=== PATIENT | male | born 1950 | race Caucasian/White ===

== ENCOUNTER 2021-02-21 09:07 | Day surgery (SDC) | payer MEDICARE, SELFPAY ==
[2021-02-21] MEDS: PROPARACAINE 0.5% OPHTH SOL 2 DROPS EYE-OP (09:54)
[2021-02-21] MEDS: CATARACT EYE COMPOUND (10 DROPS/SYRINGE) 3 DROPS EYE-OP (09:57)
[2021-02-21 10:06] VITALS: BP 143/79; PULSE 72; RESP 16; TEMP 37; O2SAT 96; BMI 25.1
--- NOTE | 2021-02-21 10:40 | PM.PREOP ---
Pre-operative Note Interval Note History & Physical reviewed/Exam performed by Physician: Yes Changes to H&P: No
--- NOTE | 2021-02-21 10:40 | PM.OP.1 ---
Operative Date/Time/Diagnoses Pre-op diagnosis: Nuclear cataract right eye Procedure & Clinicians Procedure: Cataract Surgery Same procedure as scheduled: Yes Surgeon: Rohit Lopez Anesthesia Type: MAC +/- and Sedation Operative Notes Procedure in detail: Patient brought to the operating suite. Tetracaine drops placed in the right eye. Patient was prepped and draped in sterile manner. Wire lid speculum was placed in the eye. Betadine drops were placed on the eye. This was irrigated. Lidocaine jelly was placed on the eye. A paracentesis port was created with a side-port blade. 0.1 mL 1% preservative free lidocaine was injected into the anterior chamber. The anterior chamber was deepened with viscoelastic. 2.6 mm keratome was used to create a temporal clear corneal incision. Cystotome and Utrata forceps were used to create continuous tear capsulorrhexis. Balanced salt solution was used to hydro dissect the nucleus. The phacoemulsification handpiece was inserted and the nucleus was removed using the stop and chop technique. The irrigation aspiration handpiece was inserted and the remaining cortex was removed. Anterior chamber was deepened with viscoelastic. An Jones DIB00 intraocular lens with a power of 15.0 was injected into the capsular bag. Irrigation aspiration handpiece was inserted and the remaining viscoelastic was removed. Incision was hydrated with balanced salt solution and found to be leak free with pressure with Weck-Amber sponges. 0.1 mL Vigamox injected anterior chamber. 0.3 mL Kenalog 10 mg was injected subconjunctivally. Lid speculum was removed. The patient left the operating room in excellent condition. Complications: none Post-operative Condition: stable Disposition: same day surgery
[2021-02-21] MEDS: PHENYLEPHRINE/LIDOCAINE VIAL (OR) 0.2 ML EYE-OP (11:09)
[2021-02-21] MEDS: LIDOCAINE 2% (GLYDO) 6 ML GEL TOP (11:10)
[2021-02-21] MEDS: BALANCED SALT IRRIG SOLN NO.2 500 ML, EPINEPHrine 1 MG IRR (11:10)
[2021-02-21] MEDS: TETRACAINE 0.5% OPHTH DROPS 4 ML 2 DROPS EYE-OP (11:10)
[2021-02-21] MEDS: MOXIFLOXACIN INJ 4 MG/0.8 ML VIAL 0.5 MG EYE-OP (11:10)
[2021-02-21] MEDS: TRIAMCINOLONE 50 MG/5 ML VIAL INJ (11:10)
[2021-02-21 11:28] VITALS: BP 152/87; PULSE 61; RESP 18; TEMP 36.6; O2SAT 97
--- NOTE | 2021-02-21 11:36 | SUR.PHASEII ---
Pt ready to go, ride called, left in stable condition.
== END 2021-02-21 11:38 | disposition home or self-care (01) ==
PROVIDERS: PCP Family Medicine; Referring Provider Ophthalmology; Visit Provider Ophthalmology
PROC: (CPT 66984; principal; 2021-02-21 10:45)
DX: H25.11 Age-related nuclear cataract, right eye (principal); E78.00 Pure hypercholesterolemia, unspecified; I10 Essential (primary) hypertension
CPT/HCPCS: 66984; J0171; J2250; J3301

== ENCOUNTER 2021-03-07 10:52 | Day surgery (SDC) | payer MEDICARE, SELFPAY ==
[2021-03-07] MEDS: PROPARACAINE 0.5% OPHTH SOL 2 DROPS EYE-OP (11:13)
[2021-03-07] MEDS: CATARACT EYE COMPOUND (10 DROPS/SYRINGE) 3 DROPS EYE-OP (11:18)
[2021-03-07 11:26] VITALS: BP 171/86; PULSE 66; RESP 16; TEMP 36.8; O2SAT 97; BMI 25.1
--- NOTE | 2021-03-07 11:54 | P.OP_ITS ---
Operative Date/Time/Diagnoses Pre-op diagnosis: Nuclear Cataract Left eye Post-op diagnosis: same Procedure & Clinicians Same procedure as scheduled: Yes Surgeon: Rohit Lopez Anesthesia Type: MAC +/- and Sedation Operative Notes Procedure in detail: Patient brought to the operating suite. Tetracaine drops placed in the left eye. Patient was prepped and draped in sterile manner. Wire lid speculum was placed in the eye. Betadine drops were placed on the eye. This was irrigated. Lidocaine jelly was placed on the eye. A paracentesis port was created with a side-port blade. 0.1 mL 1% preservative free lidocaine was injected into the anterior chamber. The anterior chamber was deepened with viscoelastic. 2.6 mm keratome was used to create a temporal clear corneal incision. Cystotome and Utrata forceps were used to create continuous tear capsulorrhexis. Balanced salt solution was used to hydro dissect the nucleus. The phacoemulsification handpiece was inserted and the nucleus was removed using the stop and chop technique. The irrigation aspiration handpiece was inserted and the remaining cortex was removed. Anterior chamber was deepened with viscoe lastic. An Jones DIB00 intraocular lens with a power of 15.5 was injected into the capsular bag. Irrigation aspiration handpiece was inserted and the remaining viscoelastic was removed. Incision was hydrated with balanced salt solution and found to be leak free with pressure with Weck-Amber sponges. 0.1 mL Vigamox injected anterior chamber. 0.3 mL Kenalog 10 mg was injected subconjunctivally. Lid speculum was removed. The patient left the operating room in excellent condition. Complications: none Post-operative Condition: stable Disposition: same day surgery
--- NOTE | 2021-03-07 11:54 | PM.PREOP ---
Pre-operative Note Interval Note History & Physical reviewed/Exam performed by Physician: Yes Changes to H&P: No
[2021-03-07] MEDS: LIDOCAINE 2% (GLYDO) 6 ML GEL TOP (12:12)
[2021-03-07] MEDS: BALANCED SALT IRRIG SOLN NO.2 500 ML, EPINEPHrine 1 MG IRR (12:12)
[2021-03-07] MEDS: MOXIFLOXACIN INJ 4 MG/0.8 ML VIAL 0.5 MG EYE-OP (12:13)
[2021-03-07] MEDS: TRIAMCINOLONE 50 MG/5 ML VIAL INJ (12:13)
[2021-03-07] MEDS: PHENYLEPHRINE/LIDOCAINE VIAL (OR) 0.2 ML EYE-OP (12:13)
[2021-03-07] MEDS: CHONDROIDTIN/SOD HYALURONATE 1.05 ML SYRINGE INTRAOCULA (12:13)
[2021-03-07] MEDS: TETRACAINE 0.5% OPHTH DROPS 4 ML 2 DROPS EYE-OP (12:14)
--- NOTE | 2021-03-07 12:36 | SUR.PHASEII ---
Pt ready to go, left when ride arrived, left in stable condition.
== END 2021-03-07 12:37 | disposition home or self-care (01) ==
PROVIDERS: PCP Family Medicine; Referring Provider Family Medicine; Visit Provider Ophthalmology
PROC: (CPT 66984; principal; 2021-03-07 12:45)
DX: H25.12 Age-related nuclear cataract, left eye (principal); E78.00 Pure hypercholesterolemia, unspecified; I10 Essential (primary) hypertension
CPT/HCPCS: 66984; J0171; J2250; J3301

== ENCOUNTER → 2022-11-23 09:54 | Outpatient (CLI) | payer MEDICARE, SELFPAY ==
[2022-11-23 10:31] LABS: COVID19 -Nasal RAPID Negative (Negative)
== END ==
PROVIDERS: PCP Family Medicine; Referring Provider Internal Medicine Cardiovascular Disease; Visit Provider Internal Medicine
DX: Z20.822 Contact with and (suspected) exposure to COVID-19 (principal)
CPT/HCPCS: 87635; C9803

== ENCOUNTER → 2022-11-23 09:55 | Outpatient (CLI) | payer MEDICARE, SELFPAY ==
--- NOTE | 2022-11-27 11:22 | P.PFT.S_ITS ---
Pulmonary Function Test Referral & Results Date Patient Seen: 11/23/22 Requesting provider: Jude Kuo Results: The spirometry demonstrates an FVC of 3.25 L which is 77% of predicted. The FEV1 was measured at 1.55 L which is 50% of predicted. The FEV1/FVC ratio was 48 which is 65% of predicted. Following the administration of bronchodilator there was a 20% improvement in FEV1 and a 60% improvement in FEF 25-75%. Lung volumes show an SVC of 3.55 L which is 80% of predicted. The diffusing capacity was measured at 17.82 which is 57% of predicted. No hemoglobin value was provided, so no correction for potential anemia could be made, if appropriate. The maximum voluntary ventilation was reduced Interpretation: This study demonstrates moderately severe obstructive lung disease based on reduction FEV1 and FEV1/FVC ratio. There is evidence of significant benefit following bronchodilator as above There is a mild reduction in lung volumes suggesting the presence of mild restri ctive lung disease as well There is a moderate reduction diffusing capacity suggesting disease at the capillary alveolar level Clinical correlation suggested but this is consistent with a diagnosis of COPD
== END ==
PROVIDERS: PCP Family Medicine; Referring Provider Nurse Practitioner Family; Visit Provider Nurse Practitioner Family
DX: R06.02 Shortness of breath (principal); Z87.891 Personal history of nicotine dependence; Z20.822 Contact with and (suspected) exposure to COVID-19; J98.8 Other specified respiratory disorders
CPT/HCPCS: 87635; 94060; 94726; 94729; C9803

== ENCOUNTER → 2022-12-24 10:04 | Outpatient (CLI) | payer MEDICARE, SELFPAY ==
--- NOTE | 2022-12-24 | DI.US.S_ITS ---
PROCEDURE: US ABD AORTA ANEURYSM SCREEN INDICATIONS: screening for AAA TECHNIQUE: Real time scanning was performed of the aorta and iliac arteries, with image documentation. COMPARISON: None. FINDINGS: Aorta: Proximal aortic diameter measures 1.2 cm. Mid-aorta measures 0.9 cm. Distal aortic diameter is 0.8 cm. Iliac arteries: Right common iliac artery measures 0.5 cm. Left common iliac artery measures 0.5 cm. IMPRESSION: No ectasia or aneurysmal dilatation of the aorta or iliac arteries. Dictated by: Johanny Pang M.D. on 12/24/2022 at 13:30 Approved by: Johanny Pang M.D. on 12/24/2022 at 13:31
--- NOTE | 2022-12-24 | DI.ECHO.S_ITS ---
[facility] +---------+ : : [address] : [address] : : : : [id number] : : : : Phone: [phone] Echocardiogram Report + + :Name: JULIO CÉSAR CASANOVA III Study Date: 12/24/2022 Height: 69 in : :[facility] ReadingLocation: Weight: 174 lb : : Gender: Male BSA: 1.9 m2 : :: 1950 Age: 72 yrs BP: 142/89 mmHg: :Reason For Study: HYPERTENSION : :Ordering Physician: ELYSE, : :RON Performed By: Laney Recio : :Referring: RON PAPPAS : + + Interpretation Summary The left ventricle is normal in size. The left ventricle is hyperdynamic. The ejection fraction is estimated to be 70-75%. With Valsalva there appears to be moderate dynamic LV outflow tract obstruction with peak velocity up to 3.51 m/s. Before Valsalva velocity about 1.6 m/s. The right ventricle is mildly dilated. The right ventricular systolic function is normal. There is mild tricuspid regurgitation. The right ventricular systolic pressure is estimated to be at least 42 mmHg based on an estimated right atrial pressure of 3 mm Hg. Procedure: A two-dimensional transthoracic echocardiogram with color flow and Doppler was performed. The study quality was technically adequate. There is no prior echocardiogram noted for this patient. The patient was in sinus rhythm with heart rates between 65-79 bpm during the exam. Left Ventricle: The left ventricle is normal in size. Proximal septal thickening is noted. The echo findings are consistent with moderate dynamic left ventricular outflow tract obstruction. There is no thrombus. The ejection fraction is estimated to be 70-75%. The left ventricle is hyperdynamic. There are no focal wall motion abnormalities. Diastolic parameters suggest a relaxation abnormality of the left ventricle, consistent with probable normal filling pressures. Right Ventricle: The right ventricle is mildly dilated. The right ventricular systolic function is normal. Atria: The left atrial size is normal. Right atrial size is normal. There is no Doppler evidence for an interatrial shunt. Mitral Valve: The mitral valve is normal in structure and function. There is systolic anterior motion of the chordal apparatus. Redundant elongated chordae are noted. There is trace mitral regurgitation. Aortic Valve: The aortic valve is trileaflet. The aortic valve is slightly calcified. There is no aortic valve stenosis. No aortic regurgitation is present. Tricuspid Valve: The tricuspid valve is normal. There is mild tricuspid regurgitation. The right ventricular systolic pressure is estimated to be at least 42 mmHg based on an estimated right atrial pressure of 3 mm Hg. Pulmonic Valve: The pulmonic valve is not well visualized. There is no pulmonic valvular regurgitation. Great Vessels: The aortic root is normal size. The dimensions of the ascending aorta are normal. The IVC is of normal diameter and collapses greater than 50% with a sniff. This suggests a low right atrial pressure of 3 mm Hg. Pericardium/ Pleura There is no pericardial effusion. There is no pleural effusion. MMode/2D Measurements & Calculations LVIDd: 4.5 cm LVOT diam: 2.3 cm LVIDs: 3.3 cm Ao root diam: 3.7 cm FS: 27.6 % asc Aorta Diam: 3.7 cm IVSd: 0.97 cm Ao Arch Diam (Prox Trans): 3.4 cm LVPWd: 0.88 cm LV galarza. diameter/BSA (cm/m^2): 2.3 LV sys. diameter/BSA (cm/m^2): 1.7 LA A2 area: 18.4 cm2 RA long axis: 5.2 cm LA A4 area: 18.2 cm2 RA area: 15.5 cm2 LA length (vol): 5.2 cm RA vol: 39.1 ml LA vol: 54.7 ml RA : 20.1 ml/m2 LA vol index: 28.1 ml/m2 IVC diam: 1.4 cm RVD1 (basal): 4.3 cm RVD2 (mid): 3.1 cm TAPSE: 2.0 cm Doppler Measurements & Calculations Ao V2 max: 151.1 cm/sec LVOT Max Lon: 140.9 cm/sec Ao V2 mean: 109.8 cm/sec LV V1 max P.9 mmHg Ao max P.1 mmHg LV V1 VTI: 27.6 cm Ao mean P.3 mmHg BJORN(I,D): 3.8 cm2 Ao V2 VTI: 30.5 cm BJORN(V,D): 4.0 cm2 sev ratio: 0.90 BJORN indexed to BSA (cm^2/m^2): 2.0 MV E max lon: 74.4 cm/sec TR max lon: 310.7 cm/sec MV A max lon: 111.7 cm/sec TR max P.6 mmHg MV E/A: 0.67 PA V2 max: 121.7 cm/sec Med Peak E' Lon: 7.7 cm/sec PA V2 mean: 78.7 cm/sec E/E' med: 9.7 PA mean P.8 mmHg Lat Peak E' Lon: 9.4 cm/sec PA pr(Accel): 51.6 mmHg E/E' lat: 7.9 E/e' average: 8.8 MV dec time: 0.24 sec SV(LVOT): 116.8 ml Reading Physician:01:56 PM
--- NOTE | 2022-12-24 | DI.NM.S_ITS ---
PROCEDURE: NM JAYCE PERF SPECT REST & STR Rest and exercise myocardial perfusion SPECT with gated imaging and ejection fraction RADIOPHARMACEUTICAL: 11.6 mCi Tc-99m sestamibi IV at rest and 26.5 mCi Tc-99m sestamibi IV at peak exercise. A [id number] was performed. INDICATIONS: Hypertension TECHNIQUE: Radiopharmaceutical was injected at peak stress test, and also at rest. SPECT images were obtained. SPECT myocardial perfusion images were displayed in short axis, horizontal long axis, and vertical long axis views. Gated images were reviewed using Couchsurfing software. COMPARISON: None. CARDIAC STRESS: A standard [place] treadmill exercise tolerance test was performed by the patient under the supervision of an attending staff. The patient exercised for 4 minutes and 0 seconds; 4.6 METS; functional aerobic impairment (CHUY) is +47%. Hemodynamic data: There is normal heart rate response to exercise stress. Hypertensive blood pressure response to exercise up to 248 systolic. Patient achieved 107% of maximum predicted heart rate at peak exercise. Symptoms: Patient denied chest pain during exercise. The patient did experience claudication with exertion. EKG: No ST segment changes. Frequent PVCs and brief episodes of NSVT up to 6 beats with exercise and in recovery. FINDINGS: Raw data: There is good myocardial labeling by radiotracer. No significant motion artifacts. Gflc-sc-qrtkw ratio is 0.38 (normal is less than 0.38 for sestamibi tracer, and less than 0.50 for thallium tracer). Left ventricle function: Gated images demonstrate normal left ventricle wall thickening. No segmental wall motion abnormality. No transient ischemic dilation; TID is 0.85 (normal less than 1.3). The left ventricle resting end-diastolic volume is 94 mL. Left ventricle stress ejection fraction is >75%; normal values are above 45%. Myocardial perfusion: There is normal distribution of activity in the left and right ventricular myocardium. No fixed or reversible perfusion defects. IMPRESSION: Intermediate risk study. No evidence of exercise induced ischemia or scar on SPECT imaging. While there were no ST segment changes on exercise ECG, there is note of frequent PVCs and NSVT. Hypertensive response to exercise. The patient complained of claudication-like symptoms. Dictated by: Stephany Giang D.O. on 12/24/2022 at 16:37 Approved by: Stephany Giang D.O. on 12/24/2022 at 16:49
== END ==
PROVIDERS: PCP Family Medicine; Referring Provider Nurse Practitioner Family; Visit Provider Nurse Practitioner Family
DX: I07.1 Rheumatic tricuspid insufficiency (principal); Z13.6 Encounter for screening for cardiovascular disorders; I73.9 Peripheral vascular disease, unspecified; I10 Essential (primary) hypertension; I70.90 Unspecified atherosclerosis; R06.02 Shortness of breath; Z87.891 Personal history of nicotine dependence
CPT/HCPCS: 76706; 78452; 93017; 93306; A9502

== ENCOUNTER → 2023-11-27 10:14 | Outpatient (CLI) | payer MEDICARE, SELFPAY ==
--- NOTE | 2023-11-27 10:15 | DI.CT.S_ITS ---
PROCEDURE: CT LUNG LOW DOSE SCREENING INDICATIONS: FORMER SMOKER TECHNIQUE: Noncontrast 2.0-2.5 mm thick sections acquired from the pulmonary apices to the posterior costophrenic angles. 7 mm thick axial MIP, and 5 mm coronal and sagittal reformats were then acquired. For radiation dose reduction, the following was used: automated exposure control, adjustment of mA and/or kV according to patient size. COMPARISON: [facility], CT, CT LOW DOSE LUNG CA SCREENING, 09/27/2021, 10:34. FINDINGS: Image quality: Breathing motion artifact limits evaluation of the bilateral lung bases. Lower Neck: No enlarged lymph nodes. Thyroid: No thyroid nodules which require sonographic follow up, per consensus guidelines. Axillae: No enlarged lymph nodes. Chest Wall: Unremarkable. Bones: Unremarkable. Lungs and Pleura: No pneumothorax or pleural effusions. There is severe centrilobular emphysema bilaterally. There is severe paraseptal emphysema within the posterior aspect of the bilateral lower lobes. Pulmonary scarring is present at the left lung base. There is an ill-defined 0.9 cm nodule at the left lung base (series 3/image 249). It is unclear whether this is a true pulmonary nodule or a small focus of consolidation or atelectasis. This is new when compared with the CT dated September 27, 2021. Heart: Heart size is normal. No pericardial effusion. Thoracic Vessels: The aorta and pulmonary arteries demonstrate normal size. Scattered atheromatous calcifications are present within the aortic arch. Mediastinum and Nia: No enlarged lymph nodes. Esophagus: No wall thickening. No hiatal hernia. Upper Abdomen: Visualized upper abdomen solid organs and bowel loops appear normal. IMPRESSION: 1. Questionable 9 mm pulmonary nodule at the left lung base versus consolidation or atelectasis. LUNG-RADS 4A; suspicious. Three-month follow-up CT recommended. Clinically Significant Non-pulmonary Findings: None. Dictated by: Johanny Pang M.D. on 11/27/2023 at 11:28 Approved by: Johanny Pang M.D. on 11/27/2023 at 12:48
== END ==
LOC: CT 10:15
PROVIDERS: PCP Family Medicine; Referring Provider Family Medicine; Visit Provider Family Medicine
DX: Z12.2 Encounter for screening for malignant neoplasm of respiratory organs (principal); R91.1 Solitary pulmonary nodule; Z87.891 Personal history of nicotine dependence
CPT/HCPCS: 71271

== ENCOUNTER → 2024-03-09 12:30 | Outpatient (CLI) | payer MEDICARE, SELFPAY ==
--- NOTE | 2024-03-09 12:31 | DI.CT.S_ITS ---
PROCEDURE: CT CHEST WO CON INDICATIONS: 3month follow up of pulmonary nodule TECHNIQUE: Noncontrast 2.0-2.5 mm thick sections acquired from the pulmonary apices to the posterior costophrenic angles. 7 mm thick axial MIP, and 5 mm coronal and sagittal reformats were then acquired. For radiation dose reduction, the following was used: automated exposure control, adjustment of mA and/or kV according to patient size. COMPARISON: [facility], CT, CT LUNG LOW DOSE SCREENING, 11/27/2023, 10:40. FINDINGS: Image quality: Diagnostic. Lower Neck: No enlarged lymph nodes. Thyroid: No thyroid nodules which require sonographic follow up, per consensus guidelines. Axillae: No enlarged lymph nodes. Chest Wall: Unremarkable. Bones: Unremarkable. Lungs and Pleura: Substantial paraseptal emphysema and moderate centrilobular emphysema. Stable 9 x 6 mm nodule in the left lower lobe (series 3, image 244). Prior left lower wedge resection. Prior left upper lobe wedge resection. Heart: Heart size is mildly enlarged. No pericardial effusion. Three-vessel coronary calcifications. Thoracic Vessels: The aorta and pulmonary arteries demonstrate normal size. Mediastinum and Nia: No enlarged lymph nodes. Esophagus: No wall thickening. No hiatal hernia. Upper Abdomen: Visualized upper abdomen solid organs and bowel loops appear normal. IMPRESSION: Stable 9 x 6 mm solid nodule in the left lower lobe. LUNG-RADS 3; recommend six-month follow-up. Clinically Significant Non-pulmonary Findings: None. Dictated by: Itz Cooper M.D. on 03/09/2024 at 14:57 Approved by: Itz Cooper M.D. on 03/09/2024 at 15:01
== END ==
PROVIDERS: PCP Family Medicine; Referring Provider Family Medicine; Visit Provider Family Medicine
DX: J43.2 Centrilobular emphysema (principal); J43.8 Other emphysema; R91.1 Solitary pulmonary nodule; Z87.891 Personal history of nicotine dependence; I51.7 Cardiomegaly; I25.10 Atherosclerotic heart disease of native coronary artery without angina pectoris; Z90.2 Acquired absence of lung [part of]; Z87.09 Personal history of other diseases of the respiratory system
CPT/HCPCS: 71250

== ENCOUNTER → 2024-08-21 12:13 | Outpatient (CLI) | payer MEDICARE, SELFPAY ==
--- NOTE | 2024-08-21 12:14 | DI.CT.S_ITS ---
PROCEDURE: CT CHEST WO CON INDICATIONS: fu 9x6mm LLL nodule TECHNIQUE: Noncontrast 2.0-2.5 mm thick sections acquired from the pulmonary apices to the posterior costophrenic angles. 7 mm thick axial MIP and 5 mm coronal and sagittal reformats were then acquired. For radiation dose reduction, the following was used: automated exposure control, adjustment of mA and/or kV according to patient size. COMPARISON: [facility], CT, CT CHEST WO [facility], 03/09/2024, 12:49. FINDINGS: Image quality: Diagnostic. Lower Neck: No enlarged lymph nodes. Thyroid: No thyroid nodules which require sonographic follow up, per consensus guidelines. Axillae: No enlarged lymph nodes. Chest Wall: Unremarkable. Bones: Unremarkable. Lungs and Pleura: No pneumothorax or pleural effusions. 6 x 9 mm nodule in the left lower lobe adjacent to an area of pleural calcified plaque appears unchanged in size and shape on image 84 series 3. Calcified scar in the left base with probable history of prior resection. Severe paraseptal emphysematous and fibrotic lung changes with pleural calcifications again noted.. Heart: Heart size is normal. No pericardial effusion. Thoracic Vessels: The aorta and pulmonary arteries demonstrate normal size. Mediastinum and Nia: No enlarged lymph nodes. Esophagus: No wall thickening. No hiatal hernia. Upper Abdomen: Visualized upper abdomen solid organs and bowel loops appear normal. IMPRESSION: Unchanged 6 x 9 mm solid nodule in the left lower lobe appears unchanged. Recommend low-dose CT chest in 6-12 months Dictated by: Ray Erazo M.D. on 08/21/2024 at 15:46 Approved by: Ray Erazo M.D. on 08/21/2024 at 16:23
== END ==
LOC: CT 12:14
PROVIDERS: PCP Family Medicine; Referring Provider Internal Medicine; Visit Provider Internal Medicine
DX: J43.2 Centrilobular emphysema (principal); R91.1 Solitary pulmonary nodule
CPT/HCPCS: 71250

== ENCOUNTER → 2024-09-04 10:16 | Outpatient (CLI) | payer MEDICARE, SELFPAY ==
[2024-09-04 11:26] LABS: Add Manual Diff / Slide Review NO; Basophils Absolute Auto 100 /uL (0-100); Basophils Percent Auto 0.6 % (0-2); Eosinophils Absolute Auto 200 /uL (0-450); Eosinophils Percent Auto 2.6 % (2-4); Hematocrit 43.5 % (41-53); Hemoglobin 14.8 g/dL (13.5-17.5); Lymphocytes Absolute Auto 2300 /uL (1100-4500); Lymphocytes Percent Auto 25.3 % (25-40); Mean Corpuscular HGB Conc 34.1 % (30-36); Mean Corpuscular Hemoglobin 31.4 PG (26-34); Monocytes Absolute Auto 800 /uL (0-900); Monocytes Percent Auto 8.9 % (3-14); Neutrophils Absolute Auto 5700 /uL (1500-7000); Neutrophils Percent Auto 62.6 % (50-75); Platelet Count 267 X10^3/uL (150-400); Red Blood Cell Count 4.73 X10^6/uL (4.5-5.9); Red Cell Distribution Width 13.6 % (11.6-14.8); White Blood Cell Count 9.1 X10^3/uL (4.5-11.0)
[2024-09-04 12:00] LABS: Alanine Aminotransferase 28 IU/L (<50); Albumin 4.4 g/dL (3.5-5.0); Albumin Globulin Ratio 1.7 (1.0-2.8); Alkaline Phosphatase 75 U/L (38-126); Aspartate Aminotransferase 29 IU/L (17-59); Bilirubin Total 0.7 mg/dL (0.2-1.3); Blood Urea Nitrogen 21 mg/dL (9-20); Carbon Dioxide 23 mmol/L (22-32); Chloride 99 mmol/L (98-107); Cholesterol 141 mg/dL (140-199); Estimated Glomerular Filt Rate > 60 mL/min (>60); Globulin 2.6 g/dL (1.7-4.1); Glucose 125 mg/dL (80-110); HDL Cholesterol 60 mg/dL (40-60); HEMOLYSIS < 15 (0-50); LDL Cholesterol Calculated 20 mg/dL (<100); Potassium 3.9 mmol/L (3.4-5.1); Sodium 134 mmol/L (137-145); Triglycerides 307 mg/dL (35-150)
== END ==
PROVIDERS: PCP Family Medicine; Referring Provider Nurse Practitioner; Visit Provider Nurse Practitioner
DX: I25.10 Atherosclerotic heart disease of native coronary artery without angina pectoris (principal); I25.84 Coronary atherosclerosis due to calcified coronary lesion; I70.90 Unspecified atherosclerosis; E78.5 Hyperlipidemia, unspecified; I10 Essential (primary) hypertension; J43.2 Centrilobular emphysema; R91.1 Solitary pulmonary nodule
CPT/HCPCS: 36415; 80053; 80061; 85025; 99214

== ENCOUNTER → 2025-09-16 12:27 | Outpatient (CLI) | payer MEDICARE, SELFPAY ==
--- NOTE | 2025-09-16 12:28 | DI.CT.S_ITS ---
PROCEDURE: CT CHEST WO CON INDICATIONS: fu 7.5mm lung nodule TECHNIQUE: Noncontrast 5 mm thick sections acquired from the pulmonary apices to the posterior costophrenic angles. 1 mm lung window, 5 mm thick coronal and sagittal and 7 mm axial MIP reformats were then acquired. For radiation dose reduction, the following was used: automated exposure control, adjustment of mA and/or kV according to patient size. COMPARISON: [facility], CT, CT CHEST WO CON, 08/21/2024, 12:33. FINDINGS: Image quality: Diagnostic. Lower Neck: No enlarged lymph nodes. Thyroid: No thyroid nodules which require sonographic follow up, per consensus guidelines. Axillae: No enlarged lymph nodes. Chest Wall: Unremarkable. Bones: Unremarkable. Lungs and Pleura: No pneumothorax or pleural effusions. Linear hyperdensity in the left lung base, possible prior surgical resection. Similar severe emphysematous change. Unchanged nodule in the left lung base measuring 9 x 5 millimeters. Additional smaller scattered micronodules nodules are also stable. Heart: Heart size is normal. No pericardial effusion. Coronary artery calcifications. Thoracic Vessels: The aorta and pulmonary arteries demonstrate normal size. Mediastinum and Nia: No enlarged lymph nodes. Esophagus: No wall thickening. No hiatal hernia. Upper Abdomen: Nonobstructing renal stones versus vascular calcifications. Splenic calcifications, unchanged. Visualized upper abdomen solid organs and bowel loops appear otherwise normal. IMPRESSION: Stable 9 x 5 millimeter pulmonary nodule in the left lung base. Given stability since examination from 11/27/2023, recommend return to annual lung cancer screening if patient remains eligible. Dictated by: Wilfredo Reese M.D. on 09/18/2025 at 23:04 Approved by: Wilfredo Reese M.D. on 09/18/2025 at 23:13
== END ==
PROVIDERS: PCP Physician Assistant; Referring Provider Internal Medicine; Visit Provider Internal Medicine
DX: R91.1 Solitary pulmonary nodule (principal)
CPT/HCPCS: 71250; Q9967